=== PATIENT | male | born 1995 ===

== ENCOUNTER 2016-09-25 13:44 | Emergency (ER) | payer OTHER ==
[2016-09-25 13:55] VITALS: BP 157/92; RESP 16
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
--- NOTE | 2016-09-25 15:14 | RAD ---
PROCEDURE: Cervical Spine Radiographs. HISTORY: Pain. COMPARISON: None. FINDINGS: BONES: Alignment maintained. No fracture. Dens Intact. DISC SPACES: Normal. SOFT TISSUES: Normal. No prevertebral soft tissue swelling. OTHER FINDINGS: None. IMPRESSION: Normal cervical spine radiographs Further imaging can be obtained if symptoms persist and as per clinical indications.
[2016-09-25 15:54] VITALS: PULSE 80; TEMP 98; O2SAT 98
--- NOTE | 2016-09-25 16:00 | RAD ---
PROCEDURE: Radiographs of the Lumbar Spine. HISTORY: pain COMPARISON: No prior. FINDINGS: BONES: Normal alignment. No listhesis. No compressive deformity DISC SPACES: Unremarkable. OTHER FINDINGS: None. IMPRESSION: No compressive deformity. If symptoms persist, MRI should be considered.
== END 2016-09-25 15:58 | disposition home or self-care (01) ==
LOC: ED 13:44
DX: S16.1XXA Strain of muscle, fascia and tendon at neck level, initial encounter (principal); V49.9XXA Car occupant (driver) (passenger) injured in unspecified traffic accident, initial encounter; M54.5 Low back pain